=== PATIENT | female | born 1975 | race Caucasian/White ===

== ENCOUNTER 2023-06-05 13:50 | Inpatient (IN) | payer BC ==
[~2023-06-05] VITALS: Ht 160 cm; Wt 90.7 kg
[2023-06-05 14:34] LABS: BASOPHILS ABSOLUTE AUTO 0.04 K/mm3 (0.00-0.23); BASOPHILS PERCENT AUTO 0 % (0-2); EOSINOPHILS ABSOLUTE AUTO 0.03 K/mm3 (0.00-0.68); EOSINOPHILS PERCENT AUTO 0 % (0-6); Hematocrit 44.5 % (33.0-51.0); Hemoglobin 15.1 g/dL (11.5-16.0); IMMATURE GRAN ABSOLUTE AUTO 0.06 K/mm3 (0.00-0.10); IMMATURE GRAN PERCENT AUTO 1 % (0-1); LYMPHOCYTES ABSOLUTE AUTO 2.02 K/mm3 (0.84-5.20); LYMPHOCYTES PERCENT AUTO 16 % (21-46); MONOCYTES ABSOLUTE AUTO 0.63 K/mm3 (0.16-1.47); MONOCYTES PERCENT AUTO 5 % (4-13); Mean Corpuscular HGB 29.8 pg (26.0-34.0); Mean Corpuscular HGB Conc 33.9 g/dL (31.5-36.5); Mean Corpuscular Volume 88 fL (80-100); Mean Platelet Volume 9.7 fL (9.1-12.4); NEUTROPHILS ABSOLUTE AUTO 9.58 K/mm3 (1.96-9.15); NEUTROPHILS PERCENT AUTO 78 % (41-73); Platelet Count 440 K/mm3 (150-400); RDW Standard Deviation 38.5 fL (35.1-46.3); Red Blood Cell Count 5.07 M/mm3 (3.80-5.20); White Blood Cell Count 12.36 K/mm3 (4.00-11.30)
[2023-06-05 14:51] LABS: Albumin/Globulin Ratio 1.1 (0.8-1.8); Bilirubin, Total 1.2 mg/dL (0.1-1.0); Bun/Creatinine Ratio 12.5 (12.0-20.0); Calcium, Blood 8.8 mg/dL (8.5-10.1); Creatinine, Blood 0.88 mg/dL (0.40-1.00); Globulin, Blood 3.7 g/dL (2.2-4.0); Potassium, Blood 3.9 mmol/L (3.5-5.5); Total Protein, Blood 7.7 g/dL (6.4-8.2)
[2023-06-05] MEDS ORDERED: ESCI20 PO (20:56)
[2023-06-05 21:09] VITALS: BP 133/84
--- NOTE | 2023-06-06 04:45 | NUR ---
SHIFT SUMMARY HERNANDO WAS ADMITTED FROM THE ED AT AROUND 2049 SHE IS ALERT AND FULLY ORIENTED, ADMISSION COMPLETED. PT'S CHIEF COMPLAINT IS ABD PAIN W/ N/V ASSOCIATED WITH MEALTIMES, AT THIS TIME SHE IS ON FULL LIQUID DIET. PT DENIES CURRENT PAIN/DISCOMFORT. PT ORIENTED TO ROOM AND CALL LIGHT. PT IS ON FULL LIQUID DIET AT THIS TIME, AND PER REPORT WILL BE HAVING MORE IMAGING DONE TOMORROW (MRCP). PT IS INDEPENDENT IN THE ROOM. PT CURRENTLY SLEEPING WITH BED IN LOW POSITION WITH CALL LIGHT IN REACH.
[2023-06-06 04:46] VITALS: BP 133/76
[2023-06-06 04:50] LABS: BASOPHILS ABSOLUTE AUTO 0.03 K/mm3 (0.00-0.23); BASOPHILS PERCENT AUTO 0 % (0-2); EOSINOPHILS ABSOLUTE AUTO 0.06 K/mm3 (0.00-0.68); EOSINOPHILS PERCENT AUTO 1 % (0-6); Hematocrit 39.5 % (33.0-51.0); Hemoglobin 13.1 g/dL (11.5-16.0); IMMATURE GRAN ABSOLUTE AUTO 0.03 K/mm3 (0.00-0.10); IMMATURE GRAN PERCENT AUTO 0 % (0-1); LYMPHOCYTES ABSOLUTE AUTO 1.84 K/mm3 (0.84-5.20); LYMPHOCYTES PERCENT AUTO 26 % (21-46); MONOCYTES ABSOLUTE AUTO 0.68 K/mm3 (0.16-1.47); MONOCYTES PERCENT AUTO 10 % (4-13); Mean Corpuscular HGB 29.3 pg (26.0-34.0); Mean Corpuscular HGB Conc 33.2 g/dL (31.5-36.5); Mean Corpuscular Volume 88 fL (80-100); Mean Platelet Volume 9.6 fL (9.1-12.4); NEUTROPHILS ABSOLUTE AUTO 4.53 K/mm3 (1.96-9.15); NEUTROPHILS PERCENT AUTO 63 % (41-73); Platelet Count 338 K/mm3 (150-400); RDW Coefficient Variation 12.1 % (11.7-14.2); RDW Standard Deviation 39.1 fL (35.1-46.3); Red Blood Cell Count 4.47 M/mm3 (3.80-5.20); White Blood Cell Count 7.17 K/mm3 (4.00-11.30)
[2023-06-06 05:19] LABS: Albumin/Globulin Ratio 0.9 (0.8-1.8); Bilirubin, Total 2.5 mg/dL (0.1-1.0); Bun/Creatinine Ratio 9.4 (12.0-20.0); Creatinine, Blood 0.85 mg/dL (0.40-1.00); Globulin, Blood 3.2 g/dL (2.2-4.0); Potassium, Blood 3.8 mmol/L (3.5-5.5); Total Protein, Blood 6.2 g/dL (6.4-8.2)
--- NOTE | 2023-06-06 06:28 | NUR ---
SIGNIFICANT LAB VALUE CHANGE OVERNIGHT BILI CAME UP FROM 1.2 TO 2.5, AST CAME UP FROM 71 TO 802 AND ALT CAME UP FROM 76 TO 855 LOW VALUE ON 06/05 @ 1409 HIGH VALUE ON 06/05 @ 7414 DR. LARA NOTIFIED AROUND 06, NO ORDERS RECIEVED AT THIS TIME. PT STATES THAT SHE FEELS FINE.
[2023-06-06 07:17] VITALS: BP 130/85
[2023-06-06 14:00] LABS: Bilirubin, Indirect 1.8 mg/dL (0.1-0.7); Bilirubin, Total 2.8 mg/dL (0.1-1.0)
[2023-06-06 14:56] VITALS: BP 124/79
--- NOTE | 2023-06-06 17:55 | NUR ---
SHIFT SUMMARY IS A&O X 4, VSS. IS PLEASANT & COOPERATIVE WITH ALL CARE. PT HAD MRCP TODAY SHOWING GALL STONES BUT NO BLOCKING OF DUCTS. NO C/O PAIN, N/V TODAY. TOLERATING FULL LIQ DIET. DIET ADV AT DINNER TO REG. WILL BE NPO AT [facility] FOR LAP E[facility]KA IN THE AM. RECEIVED ORDERS FROM SURGEON FOR INDOCYNINE GREEN TO BE GIVEN RIGHT AT 0400.
[2023-06-06 19:18] VITALS: BP 102/69
[2023-06-07] VITALS (14 sets, daily range): BP systolic 116–153; BP diastolic 75–99
--- NOTE | 2023-06-07 04:18 | NUR ---
PT A&O X4, CALM AND COOPERATIVE WITH CARE. PT INDEPENDENT IN ROOM. DENIES ANY PAIN AT THIS TIME. NO NAUSEA OR VOMITING THIS SHIFT. PT TOLERATED REGULAR DIET FOR DINNER. PLACED NPO AT MIDNIGHT DUE TO LAP E[place]KA SCHEDULED FOR 0700 TODAY. GAVE INDOCYNINE GREEN AT 0400. PLACED REST OF BOTTLE IN PT DRAWER TO BE SENT DOWN WITH PT TO SURGERY. NS INFUISING AT 100 ML/HR. AT BEDSIDE AT START OF SHIFT. BED KEPT IN LOWEST POSITION WITH CALL LIGHT WITHIN REACH. WILL CONTINUE TO MONITOR.
[2023-06-07 04:59] LABS: BASOPHILS ABSOLUTE AUTO 0.06 K/mm3 (0.00-0.23); BASOPHILS PERCENT AUTO 1 % (0-2); EOSINOPHILS ABSOLUTE AUTO 0.24 K/mm3 (0.00-0.68); EOSINOPHILS PERCENT AUTO 4 % (0-6); Hematocrit 38.7 % (33.0-51.0); Hemoglobin 12.8 g/dL (11.5-16.0); IMMATURE GRAN ABSOLUTE AUTO 0.04 K/mm3 (0.00-0.10); IMMATURE GRAN PERCENT AUTO 1 % (0-1); LYMPHOCYTES ABSOLUTE AUTO 2.41 K/mm3 (0.84-5.20); LYMPHOCYTES PERCENT AUTO 35 % (21-46); MONOCYTES ABSOLUTE AUTO 0.51 K/mm3 (0.16-1.47); MONOCYTES PERCENT AUTO 7 % (4-13); Mean Corpuscular HGB 29.6 pg (26.0-34.0); Mean Corpuscular HGB Conc 33.1 g/dL (31.5-36.5); Mean Corpuscular Volume 89 fL (80-100); Mean Platelet Volume 9.7 fL (9.1-12.4); NEUTROPHILS ABSOLUTE AUTO 3.66 K/mm3 (1.96-9.15); NEUTROPHILS PERCENT AUTO 53 % (41-73); Platelet Count 328 K/mm3 (150-400); RDW Coefficient Variation 12.2 % (11.7-14.2); RDW Standard Deviation 39.9 fL (35.1-46.3); Red Blood Cell Count 4.33 M/mm3 (3.80-5.20); White Blood Cell Count 6.92 K/mm3 (4.00-11.30)
[2023-06-07 05:17] LABS: Albumin/Globulin Ratio 0.9 (0.8-1.8); Bilirubin, Total 1.2 mg/dL (0.1-1.0); Bun/Creatinine Ratio 12.1 (12.0-20.0); Calcium, Blood 8.5 mg/dL (8.5-10.1); Creatinine, Blood 0.91 mg/dL (0.40-1.00); Globulin, Blood 3.4 g/dL (2.2-4.0); Potassium, Blood 4.3 mmol/L (3.5-5.5); Total Protein, Blood 6.4 g/dL (6.4-8.2)
[2023-06-07 07:09] LABS: HBSAG SCREEN Negative (Negative); HCV AB Non Reactive (Non Reactive); HEP A AB, IGM Negative (Negative); HEP B CORE AB, IGM Negative (Negative)
--- NOTE | 2023-06-07 07:36 | NUR ---
surgery pt transfered to day surgery at 0700. care on going.
--- NOTE | 2023-06-07 10:26 | NUR ---
POST OP 0954 PACU REPORT RECEIVED. PT ARRIVED VIA GURNEY. PT AWAKER AND ABLE TO SLIDE HERSELF OVER TO HER BED. PT REQUESTED ICE WATER. ABD LARGE, ROUND SOFT WITH 4 LAP SITES. LAP SITED WELDER MACHINE OPERATOR. EDGES WELL APPROXIMATED. PT FEELING MORE COMFROTABLE WITH THE SECOND DOSE OF FENTANYL. FAMILY AT BEDSIDE. CONTINUE POC.
--- NOTE | 2023-06-07 10:38 | NUR ---
POST OP DR FIELDS AT BEDSIDE. VSS. CONTINUE POC.
--- NOTE | 2023-06-07 13:07 | NUR ---
POST OP PT UP TO THE BATHROOM. ABD PAIN MUCH IMPROVED AFTER AMBULATION. VOIDED X1. EATING JELLO AND SOUP FOR LUNCH. DENIED NAUSEA. MEDCIATED FOR PAIN WITH ROXICODONE X1. CONTINUE POC.
--- NOTE | 2023-06-07 14:40 | NUR ---
DR FIELDS PT AGREEABLE TO GO HOME. SHE HAS KEPT FOOD/LIQUIDS DOWN WITH NIO NUASEA OR BLOATING, SHE AHS BEEN UP TWICE TO THE BATHROOM. GAIT STEADY. PAIN MANAGED WITH ORAL PAIN MEDICATIONS. CALLED DR FIELDS FOR DISCHARGE ORDERS. CONTINUE POC.
[2023-06-07] MEDS ORDERED: OXYC5 PO (14:59)
[2023-06-07] MEDS ORDERED: SENN187 PO (15:00)
== END 2023-06-07 16:22 | disposition home or self-care (01) | DRG 419 ==
LOC: ER 13:50 → MEDS 13:51
PROVIDERS: Internal Medicine; Nurse Practitioner Acute Care; Physician Assistant; Surgery; ADMIT Student in an Organized Health Care Education/Training Program
PROC: 8E0W4CZ Robotic Assisted Procedure of Trunk Region, Percutaneous Endoscopic Approach (ICD-10-PCS; 2023-06-07)
PROC: BF13YZZ Fluoroscopy of Gallbladder and Bile Ducts using Other Contrast (ICD-10-PCS; 2023-06-07)
PROC: 0FT44ZZ Resection of Gallbladder, Percutaneous Endoscopic Approach (ICD-10-PCS; principal; 2023-06-07 07:00)
DX: K80.20 Calculus of gallbladder without cholecystitis without obstruction (principal); D72.829 Elevated white blood cell count, unspecified; Z88.0 Allergy status to penicillin
CPT/HCPCS: 36415; 71045; 74181; 74300; 76705; 80053; 80074; 82247; 82248; 83690; 84484; 85025; 96361; 96374; 96375; 99285-25; A9270; C9113; G0378; G0480; J0694; J1100; J1790; J1885; J2405; J2704; J3010; J7030